=== PATIENT | male | born 1975 | race Two or more races ===

== ENCOUNTER 2020-07-27 12:59 | Outpatient (REF) | payer OTHER, SELFPAY | END 2020-07-27 13:00 | disposition home or self-care (01) | LOC: HO.LAB 12:59 | PROVIDERS: PCP Hospitalist; Visit Provider Internal Medicine | DX: Z20.822 Contact with and (suspected) exposure to COVID-19 (principal) | CPT/HCPCS: 36415; C9803; U0003 ==

== ENCOUNTER 2021-05-06 13:12 | Outpatient (REF) | payer OTHER, SELFPAY | END 2021-05-06 13:13 | disposition home or self-care (01) | LOC: HO.LAB 13:12 | PROVIDERS: PCP Hospitalist; Visit Provider Internal Medicine | DX: Z20.822 Contact with and (suspected) exposure to COVID-19 (principal) | CPT/HCPCS: C9803; U0003; U0005 ==

== ENCOUNTER 2024-03-08 09:39 | Outpatient (AMB) | payer OTHER, SELFPAY ==
[2024-03-08 10:50] VITALS: BP 122/62; PULSE 66; O2SAT 100; BMI 34.2
--- NOTE | 2024-03-08 10:50 | MHC.OFFWIV ---
Intake Vital Signs 03/08/24 10:50 Height 5 ft 6 in Weight 212 lb BMI 34.2 BP 122/62 Blood Pressure Location Lt brachial Position Sitting Pulse 66 Pulse Source Pulse Oximeter Pulse Oximetry (%) 100 Oxygen Delivery Method Room Air Intake Visit Reasons: EP poison sabas Intake Note: Patient is here with poison sabas rash for about a month over various parts of his body, arms groin area, and legs. Patient Tobacco Use Status: Current everyday Tobacco user Allergies No Known Allergies [No Known Allergies*] Allergy (Verified 03/08/24 10:55) Do you need a note to return to daycare/school/sports/work: No HPI EP poison sabas HPI Details Itchy, Blistering, weeping Rash with some crusting at area where sleeve/glove cuffs would be and also at area where top of socks to bottom of shorts would be on bilateral arms and legs. He notes this has been ongoing for about a month. Started and recurred with yard work. Has tried calamine lotion with minimal improvement. No fevers or chills. No change in sensation of skin except itching PFSH Social History Patient Tobacco Use Status: Current everyday Tobacco user e-Cigarette/Vaping Use: Never Used Second Hand Smoke Exposure: No Current occupational exposures/hazards: No Cognitive needs: No Hearing needs: No Vision needs: No Review of Systems Const Details: See HPI Physical Exam Vital Signs: Last Vital Signs Pulse 66 03/08/24 10:50 BP 122/62 03/08/24 10:50 Pulse Ox 100 03/08/24 10:50 Oxygen Delivery Method Room Air 03/08/24 10:50 BMI result Body Mass Index 34.2 Const General: no acute distress and well developed Nutritional Appearance: well nourished Orientation/consciousness: patient oriented x3 HEENT Head: Yes normocephalic and Yes atraumatic Eyes General: appearance normal, both eyes and all related structures Pupils: Equal, round and reactive pupils present EOM: EOMs intact bilaterally Resp Effort & Inspection: normal respiratory effort Skin Other: Rash as described in HPI on bilateral arms and legs Neuro General: patient oriented x3 and gait normal Cranial nerves: Yes Equal, round and reactive pupils present Psych Affect: normal affect Assessment & Plan Assessment & Plan (1) Contact dermatitis: Code(s): L25.9 - Unspecified contact dermatitis, unspecified cause Plan: Likely moderately severe poison sabas on arms and legs Will give him a short course of prednisone and also a betamethasone ointment And he can use Benadryl or daytime antihistamine for itch Clean all tools and protective garments when doing yd work Call or return to office if worsening or not improving. Medications: New prednisone 40 mg (2 x 20 mg) PO DAILY 5 days 10 tabs 0RF betamethasone valerate 0.1% 1 appl topical BID 14 days PRN 45 grams 1RF skin irritation Coding Level of Care Code Est Pt Level 3 (83281) Diagnoses Contact dermatitis L25.9
== END 2024-03-08 12:18 | disposition home or self-care (01) ==
PROVIDERS: PCP Hospitalist; Visit Provider Family Medicine
DX: L25.9 Unspecified contact dermatitis, unspecified cause (principal)
CPT/HCPCS: 99213

== ENCOUNTER 2024-04-10 12:25 | Outpatient (AMB) | payer OTHER, SELFPAY ==
[2024-04-10 12:49] VITALS: BP 130/80; PULSE 101; O2SAT 98; BMI 34.7
--- NOTE | 2024-04-10 12:49 | MHC.OFFWIV ---
Intake Vital Signs 04/10/24 12:49 Height 5 ft 6 in Weight 215 lb BMI 34.7 BP 130/80 Blood Pressure Location Lt brachial Position Sitting Pulse 101 H Pulse Source Pulse Oximeter Pulse Oximetry (%) 98 Oxygen Delivery Method Room Air Intake Visit Reasons: EP ? cyst on his right arm, near arm pit Intake Note: Patient here for cyst under right arm that has been present for about 1 week. Patient Tobacco Use Status: Current everyday Tobacco user Allergies No Known Allergies [No Known Allergies*] Allergy (Verified 04/10/24 12:55) Do you need a note to return to daycare/school/sports/work: No HPI HPI Comments History of Present Illness Details Patient is a 48-year-old male complaining of tenderness under his right armpit and a bump. He states it has been there for about a week but it seemed to get worse yesterday and today it is definitely more tender. He denies any drainage or fevers. He tells me he did have a similar cyst on his left knee many years ago and it was MRSA. [facility] Social History Patient Tobacco Use Status: Current everyday Tobacco user e-Cigarette/Vaping Use: Never Used Second Hand Smoke Exposure: No Current occupational exposures/hazards: No Cognitive needs: No Hearing needs: No Vision needs: No Review of Systems Const All systems reviewed & are unremarkable except as noted in HPI and below Physical Exam Vital Signs: Last Vital Signs Pulse 101 H 04/10/24 12:49 BP 130/80 04/10/24 12:49 Pulse Ox 98 04/10/24 12:49 Oxygen Delivery Method Room Air 04/10/24 12:49 BMI result Body Mass Index 34.7 Const General: cooperative, healthy appearing, comfortable and no acute distress Orientation/consciousness: patient oriented x3 Limitations: no limitations HEENT Head: Yes normal to inspection Eyes General: appearance normal, both eyes and all related structures Resp Effort & Inspection: normal respiratory effort and able to speak in complete sentences Skin Other: Right axilla has area of erythema and a oval, 2 cm long X 1 cm wide area of induration below the surface. No fluctuance, no ecchymosis, no warmth Neuro General: patient oriented x3 Assessment & Plan Assessment & Plan (1) Abscess: Code(s): L02.91 - Cutaneous abscess, unspecified Plan: As the abscesses not drainable, we will cover with antibiotics in his he has had a previous MRSA infection in the skin, we will send doxycycline as well Keflex. Plan see above Medications: New doxycycline hyclate 100 mg PO BID 10 tabs 0RF cephalexin 500 mg PO Q6H 14 caps 0RF Coding Level of Care Code Est Pt Level 3 (74166) Diagnoses Abscess L02.91
== END 2024-04-10 13:28 | disposition home or self-care (01) ==
PROVIDERS: PCP Hospitalist; Visit Provider Physician Assistant
DX: L02.91 Cutaneous abscess, unspecified (principal)

== ENCOUNTER → 2024-04-10 12:25 | Outpatient (BNVA) | payer OTHER, SELFPAY | PROVIDERS: PCP Hospitalist ==

== ENCOUNTER 2024-05-23 10:09 | Outpatient (AMB) | payer OTHER, SELFPAY ==
--- NOTE | 2024-05-23 10:12 | A.OFFPC_ITS ---
Vital Signs 3 05/23/24 10:24 Height 5 ft 6 in Weight 208 lb BMI 33.6 BP 130/78 Blood Pressure Location Lt brachial Position Sitting Pulse 82 Pulse Source Pulse Oximeter Pulse Oximetry (%) 99 Oxygen Delivery Method Room Air Intake Visit Reasons: Rash Eval - For Derm. Referral Intake Note: Patient is here to follow up on Rash all over body and referral to Dermatology. Pt decline flu shot today. Firer Low Pressure Required: No Intelligence Director: Not Required per policy Accompanied by: Self / Same As Patient Allergies No Known Allergies [No Known Allergies*] Allergy (Verified 05/23/24 10:36) Medication List - Last [facility]23/24 [facility] No Known Home Meds Tobacco use date assessed: 05/23/24 Dental Screening Dental Screen Date: 05/23/24 Did you have a dental visit in the last 12 months?: No Did you have a dental problem in the last 6 months where you did not have access to dental care?: No Was dental information given to patient?: No HPI HPI Comments 2 History of Present Illness0 Details 48 y/o M here today for 2 complaints First is that of wt loss, has changed his diet. He weighs himself daily. He wonders how much weight he should lose without being concerned. He was lost her primary care follow up after his primary care left. He has only been seen at the walk-in center's or emergency room for episodic care. The 2nd is that of a recurrent rash which 1st developed about 2 months ago. Reports that he had poison sabas exposure and was treated with prednisone and an ointment with positive relief. However 1 week later while working with dry while he developed the same rash. The rash is on his right forearm, right side of his neck, right ear, trunk anterior and posterior and bilat legs. The rash is intermittently itchy. It was not painful. No one else has this rash. He has been treating at home with topical cortisone, the ointment that he was given at 1 of the urgent care visits and he has been pulsing himself with leftover prednisone that he has at home. Does admit that the prednisone does help with the itch however does not resolve the rash. Would like a referral to dermatology for this. Exam: This rash is present in plaques on his anterior and posterior trunk, right arm, bilat legs, right side of neck, no drainage or erythema to suggest infection Plan Refer to dermatology. Start topical triamcinolone twice per day to the affected areas. Start Zyrtec daily. He requested routine labs to be done and would like to establish care with Dr Vallejo for primary care. I have ordered these routine labs for him and I asked the front end mechanic to arrange a new patient appointment with the requested provider. In regards to the weight loss, this is something he can address with his primary care provider. This note is constructed using voice recognition software. While every effort has been made to ensure accuracy in manager of corporate communications, still errors may have been included Sometimes, these errors may affect the content or meaning of the given sentence . Total time spent caring for the patient today was 30 minutes. This includes time spent before the visit reviewing the chart, time spent during the visit, and time spent after the visit on documentation [facility] Surgical History (Updated 05/23/24 @ 10:27 by ED Wilkes) No pertinent past surgical history Social History (Updated 05/23/24 @ 10:28 by ED Wilkes) Housing: House Alcohol intake: current Alcohol intake frequency: a few times a week Patient Tobacco Use Status: Current everyday Tobacco user Tobacco use type: Cigarette Cigarette Packs Per Day: 0.5 Cigarettes Per Day: 5 e-Cigarette/Vaping Use: Never Used Second Hand Smoke Exposure: Yes service: No Current occupational status: employed Current occupation: [employer] Current occupational exposures/hazards: No Cognitive needs: No Hearing needs: No Vision needs: Yes (Glasses) Questionnaire PHQ-9 Over the last 2 weeks, how often have you been bothered by any of the following problems? 1. Little interest or pleasure in doing things: not at all 2. Feeling down, depressed, or hopeless: not at all 3. Trouble falling or staying asleep, or sleeping too much: not at all 4. Feeling tired or having little energy: not at all 5. Poor appetite or overeating: several days 6. Feeling bad about yourself - or that you are a failure or have let yourself or your family down: not at all 7. Trouble concentrating on things, such as reading the newspaper or watching television: not at all 8. Moving or speaking so slowly that other people could have noticed. Or the opposite - being so fidgety or restless that you have been moving around a lot more than usual: not at all 9. Thoughts that you would be better off or of hurting yourself in some way: not at all Total score: 1 Depression Screening Interpretation: Positive Depression Screening Done: Yes 77636 - PHQ-9 Billing: Yes Source: Developed by Drs. Armando Zamarripa, Chacha Alvarez, Grabiel Buckner and colleagues, with an educational carlos from [employer]. Thrive Questionnaire Date Thrive assessed: 05/23/24 I am a: Patient What is your living situation today?: I have a steady place to live Within the past 12 months, did the food you bought not last and you didn't have the money to get more?: I choose not to answer this question Within the past 12 months, did you worry whether your food would run out before you got money to buy more?: I choose not to answer this question Do you have trouble paying for medicines?: No Do you have trouble getting transportation to medical appointments?: No Do you have trouble paying your heating and electricity bill?: No Do you have trouble taking care of your child, family member or friend?: No Do you have trouble with day-to-day activities such as bathing, preparing meals, shopping, managing finances, etc.?: No Are you currently unemployed and looking for a job?: No Are you interested in more education?: No Please select the resources that you would like help with: None Currently or been in a relationship where the following occur: I choose not to answer THRIVE Score: 0 AUDIT C Alcohol Use Questionnaire (AUDIT-C) 1. How often do you have a drink containing alcohol?: 2-4 times a month 2. How many drinks containing alcohol do you have on a typical day when you are drinking?: 3 or 4 3. How often do you have six or more drinks on one occasion?: Less than monthly Total Score: 4 Score Reviewed/Action Taken: Yes NAREN-7 AMB Questionnaire NAREN-7 Date NAREN - 7 assessed: 05/23/24 Feeling nervous, anxious, or on edge: 0 = Not at all Not being able to stop or control worryin = Not at all Worrying too much about different things: 0 = Not at all Trouble relaxin = Not at all Being so restless that it is hard to sit still: 0 = Not at all Becoming easily annoyed or irritable: 0 = Not at all Feeling afraid as if something awful might happen: 0 = Not at all Total NAREN-7 score (0-4 normal; 5-9 mild; 10-14 moderate; 15-21 severe): 0 Source: Developed by Drs. Armando Zamarripa, Chacha Alvarez, Grabiel Buckner and colleagues, with an educational carlos from [employer]. NAREN-7 Assessment Billing NAREN-7 Assessment Tool: NAREN-7 Assessment 61185 Physical exam (Primary Care) Vital Signs: Last Vital Signs Pulse 82 05/23/24 10:24 BP 130/78 05/23/24 10:24 Pulse Ox 99 05/23/24 10:24 Oxygen Delivery Method Room Air 05/23/24 10:24 BMI result Body Mass Index 33.6 Tobacco/Smoking Status: Tobacco use Status Tobacco use date assessed 05/23/24 05/23/24 10:29 Patient Tobacco Use Status Current everyday Tobacco 05/23/24 10:28 Tobacco use type Cigarette 05/23/24 10:29 e-Cigarette/Vaping Use Never Used 05/23/24 10:28 PHQ-9: PHQ-9 Score PHQ-9: Total score 1 05/23/24 10:13 Depression Screening Interpretation: Positive Thrive Assessment: Date of Thrive Assessment Date Thrive assessed 05/23/24 05/23/24 10:13 Currently or been in a relationship where the following occur: I choose not to answer Coding Level of Care Code Est Pt Level 4 (79658) Complex EM visit Add On G2211 Diagnoses Rash of entire body R21 Additional Codes PHQ-9 - 58260 - PHQ-9 Billing: Yes ([id number]) NAREN-7 Assessment Billing - NAREN-7 Assessment Tool: NAREN-7 Assessment 30299 ([id number]) Assessment & Plan Assessment & Plan (1) Rash of entire body: Code(s): R21 - Rash and other nonspecific skin eruption Category: Medical Plan: . Plan . Orders: Orders 2 Comprehensive Met. Panel Today Z00.00 - Encounter for general adult medical examination without abnormal findings, Z11.3 - Encounter for screening for infections with a predominantly sexual mode of transmission Hemoglobin A1c Today Z00.00 - Encounter for general adult medical examination without abnormal findings, Z11.3 - Encounter for screening for infections with a predominantly sexual mode of transmission Lipid Panel Today Z00.00 - Encounter for general adult medical examination without abnormal findings, Z11.3 - Encounter for screening for infections with a predominantly sexual mode of transmission Microalbumin, Random (w Creat) Today Z00.00 - Encounter for general adult medical examination without abnormal findings, Z11.3 - Encounter for screening for infections with a predominantly sexual mode of transmission TSH reflex Free T4 Today Z00.00 - Encounter for general adult medical examination without abnormal findings, Z11.3 - Encounter for screening for infections with a predominantly sexual mode of transmission Vitamin B12 and Folate Today Z00.00 - Encounter for general adult medical examination without abnormal findings, Z11.3 - Encounter for screening for infections with a predominantly sexual mode of transmission Syphilis Screen Today Z00.00 - Encounter for general adult medical examination without abnormal findings, Z11.3 - Encounter for screening for infections with a predominantly sexual mode of transmission Herpes Simplex Virus Ab IgG Today Z00.00 - Encounter for general adult medical examination without abnormal findings, Z11.3 - Encounter for screening for infections with a predominantly sexual mode of transmission PSA, Ultra Sensitive Today Z00.00 - Encounter for general adult medical examination without abnormal findings, Z11.3 - Encounter for screening for infections with a predominantly sexual mode of transmission Referrals 2 Dermatology Referral R21 - Rash and other nonspecific skin eruption Medications: New 2 cetirizine (Zyrtec) 10 mg PO DAILY 90 tabs 0RF triamcinolone acetonide 0.1% arms legs back abd 1 appl topical BID 453.6 grams 2RF
[2024-05-23 10:24] VITALS: BP 130/78; PULSE 82; O2SAT 99; BMI 33.6
== END 2024-05-23 10:47 | disposition home or self-care (01) ==
PROVIDERS: PCP Nurse Practitioner Family; Visit Provider Nurse Practitioner Family
DX: R21 Rash and other nonspecific skin eruption (principal)

== ENCOUNTER 2024-05-23 10:58 | Outpatient (REF) | payer OTHER, SELFPAY ==
[2024-05-23 14:36] LABS: Estimated Average Glucose 105 mg/dL; Hemoglobin A1C 133.9263 umol/L; Hemoglobin A1c % 5.3 % (<6.0); Total Hemoglobin (HGBA1C) 3834.8352 umol/L
[2024-05-23 14:41] LABS: Alanine Aminotransferase 17 U/L (0-40); Albumin Level 4.6 g/dL (3.5-5.0); Alkaline Phosphatase 50 U/L (39-117); Anion Gap 11 (12-20); Aspartate Amino Transferase 25 U/L (5-37); Bilirubin Total 1.3 mg/dL (0.0-1.0); Blood Urea Nitrogen 11 mg/dL (9-16); Calcium 9.7 mg/dL (8.4-10.2); Carbon Dioxide 24 mmol/L (22-29); Chloride 106 mmol/L (96-108); Cholesterol 200 mg/dL (<200); Estimated Glomerular Filt Rate > 60; Glucose Random 102 mg/dL (60-115); HDL Cholesterol 54 mg/dL (>40); LDL Cholesterol Calculated 127 mg/dL (<100); Potassium 3.9 mmol/L (3.3-5.1); Sodium 137 mmol/L (135-145); Total Protein 7.5 g/dL (6.5-8.0); Triglycerides 95 mg/dL (<150)
[2024-05-23 14:48] LABS: TSH reflex Free T4 0.62 uIU/mL (0.32-4.0)
[2024-05-23 14:57] LABS: Vitamin B12 231 pg/mL (200-900)
[2024-05-23 18:24] LABS: Creatinine Urine 63.16 mg/dL; Microalbumin Urine < 5.0 mg/L
[2024-05-25 08:52] LABS: Syphilis Screen Nonreactive (Nonreactive)
[2024-05-26 12:38] LABS: Herpes Simplex Type 2 IgG <0.90 index
[2024-05-29 07:53] LABS: PSA, Ultra Sensitive 0.97 ng/mL
== END 2024-05-23 10:59 | disposition home or self-care (01) ==
LOC: HO.WFDLDS 10:58
PROVIDERS: Visit Provider Nurse Practitioner Family
DX: R21 Rash and other nonspecific skin eruption (principal); Z00.00 Encounter for general adult medical examination without abnormal findings; Z11.3 Encounter for screening for infections with a predominantly sexual mode of transmission; Z12.5 Encounter for screening for malignant neoplasm of prostate
CPT/HCPCS: 36415; 80053; 80061; 82570; 82607; 82746; 83036; 84153; 84443; 86695; 86696; 86780; 96127

== ENCOUNTER 2024-05-30 13:03 | Outpatient (AMB) | payer OTHER, SELFPAY ==
--- NOTE | 2024-05-30 13:18 | MHC.PC.OV ---
Vital Signs 05/30/24 13:24 Height 5 ft 6 in Weight 210 lb BMI 33.9 BP 130/72 Blood Pressure Location Rt brachial Position Sitting Respiration 16 Pulse 78 Pulse Source Pulse Oximeter Temp 98.6 F Temp Source Temporal Artery Scan Pulse Oximetry (%) 100 Oxygen Delivery Method Room Air Intake Visit Reasons: 1 week est care with Yoni, review labs Intake Note: patient here to establish care and review labs Diamond Sawer Required: No Allergies No Known Allergies [No Known Allergies*] Allergy (Verified 05/30/24 13:53) Medication List - Last Reconciled 05/30/24 by Jakob Vallejo CNP cetirizine (Zyrtec) 10 mg PO DAILY triamcinolone acetonide 0.1% 1 appl topical BID Tobacco use date assessed: 05/30/24 Dental Screening Dental Screen Date: 05/30/24 Did you have a dental visit in the last 12 months?: No Did you have a dental problem in the last 6 months where you did not have access to dental care?: No Was dental information given to patient?: Patient has dentist HPI HPI Comments History of Present Illness Details The patient is a 48-year-old male presenting to establish care and for the follow-up of eczema management. The patient has a history of chronic low back pain, which was last evaluated on May 05, 2022, by a previous PCP, Katherin Lees. The patient reports that the back pain has resolved with daily stretching exercises, which initially worsened the pain but later provided relief. No surgical history was noted for this condition. Currently, the patient is managing eczema with triamcinolone cream applied twice daily. This dermatologic condition, identified as papular eczema by a lead software qa engineer, affects the patient's forearms, stomach, and buttocks. The patient reports a slight improvement with treatment. The patient denies a significant family medical history and has no known allergies. Bilirubin levels were slightly elevated at 1.3, which could indicate mild Gilbert syndrome but shows no symptoms of jaundice. Hypercholesterolemia was detected with total cholesterol at 200 mg/dL and LDL at 127 mg/dL. PMH - low back pain Surgical history - None FMH - None Social History - Family Status: - Substance Use: Smokes 4-6 cigarettes per day since 2007, occasional alcohol use on weekends (approx. six beers over two days), no recreational drug use. - Exercise: Rides a bike twice weekly, incorporates stretching exercises for back health - Nutritional Intake: Has significantly reduced fast food consumption, engages in intermittent fasting (12-15 hours without intake) - Weight Management: Has lost weight, current weight 210 pounds, previous nearly 300 pounds Health Maintenance - Last dental visit over one year ago; issue with a cavity in the left upper wisdom tooth - Recommended eye examination due to glasses wear for farsightedness, last exam 3-4 years ago - Last tetanus vaccination was in 01/06/2013; declined vaccination. - Declined flu vaccination - Current weight 210 pounds, BMI 33.9 - Recommended lifestyle emphasis on diet and exercise - Recent lab work indicated slightly elevated bilirubin and cholesterol levels PFSH Surgical History (Updated 05/23/24 @ 10:27 by ED Wilkes) No pertinent past surgical history Social History (Updated 05/23/24 @ 10:28 by ED Wilkes) Housing: House Alcohol intake: current Alcohol intake frequency: a few times a week Patient Tobacco Use Status: Current everyday Tobacco user Tobacco use type: Cigarette Cigarette Packs Per Day: 0.5 Cigarettes Per Day: 5 e-Cigarette/Vaping Use: Never Used Second Hand Smoke Exposure: Yes service: No Current occupational status: employed 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 1. Little interest or pleasure in doing things: not at all 2. Feeling down, depressed, or hopeless: not at all 3. Trouble falling or staying asleep, or sleeping too much: not at all 4. Feeling tired or having little energy: not at all 5. Poor appetite or overeating: not at all 6. Feeling bad about yourself - or that you are a failure or have let yourself or your family down: not at all 7. Trouble concentrating on things, such as reading the newspaper or watching television: not at all 8. Moving or speaking so slowly that other people could have noticed. Or the opposite - being so fidgety or restless that you have been moving around a lot more than usual: not at all 9. Thoughts that you would be better off or of hurting yourself in some way: not at all Total score: 0 Depression Screening Interpretation: Negative Depression Screening Done: Yes 35858 - PHQ-9 Billing: Yes Source: Developed by Drs. Armando Zamarripa, Chacha Alvarez, Grabiel Buckner and colleagues, with an educational carlos from [employer]. Thrive Questionnaire Date Thrive assessed: 05/30/24 I am a: Patient What is your living situation today?: I have a steady place to live Within the past 12 months, did the food you bought not last and you didn't have the money to get more?: I choose not to answer this question Within the past 12 months, did you worry whether your food would run out before you got money to buy more?: I choose not to answer this question Do you have trouble paying for medicines?: No Do you have trouble getting transportation to medical appointments?: No Do you have trouble paying your heating and electricity bill?: No Do you have trouble taking care of your child, family member or friend?: No Do you have trouble with day-to-day activities such as bathing, preparing meals, shopping, managing finances, etc.?: No Are you currently unemployed and looking for a job?: No Are you interested in more education?: No Please select the resources that you would like help with: None Currently or been in a relationship where the following occur: I choose not to answer THRIVE Score: 0 AUDIT C Alcohol Use Questionnaire (AUDIT-C) 1. How often do you have a drink containing alcohol?: Monthly or less 2. How many drinks containing alcohol do you have on a typical day when you are drinking?: 1 or 2 3. How often do you have six or more drinks on one occasion?: Less than monthly Total Score: 2 Score Reviewed/Action Taken: Yes NAREN-7 AMB Questionnaire NAREN-7 Date NAREN - 7 assessed: 05/30/24 Feeling nervous, anxious, or on edge: 0 = Not at all Not being able to stop or control worryin = Not at all Worrying too much about different things: 0 = Not at all Trouble relaxin = Not at all Being so restless that it is hard to sit still: 0 = Not at all Becoming easily annoyed or irritable: 0 = Not at all Feeling afraid as if something awful might happen: 0 = Not at all Total NAREN-7 score (0-4 normal; 5-9 mild; 10-14 moderate; 15-21 severe): 0 Source: Developed by Drs. Armando Zamarripa, Chacha Alvarez, Grabiel Buckner and colleagues, with an educational carlos from [employer]. NAREN-7 Assessment Billing NAREN-7 Assessment Tool: NAREN-7 Assessment 50987 Review of Systems Const Details: Denies chills, Denies fatigue, Denies fever(s), Denies headache(s) and Denies weakness HEENT Difficulty seeing far, requires glasses, Denies change in vision, Denies dizziness, Denies headache(s), Denies hearing loss, Denies nasal congestion, Denies sinus pain, Denies sinus pressure and Denies sore throat Card Denies chest pain, Denies lightheadedness, Denies dyspnea and Denies other (palpitations) Resp Denies cough, Denies dyspnea and Denies wheezing GI Denies abdominal pain, Denies melena, Denies hematochezia, Denies change in bowel habits, Denies dyspepsia and Denies nausea Denies hematuria and Denies dysuria Musc Denies abnormal gait, Denies myalgias, Denies arthralgias, Denies numbness and Denies tingling Skin/Breast Reports eczema on forearms, stomach, and buttocks, Denies unusual bruising and Denies wounds Neuro Denies abnormal gait, Denies dizziness, Denies headache(s), Denies memory loss, Denies numbness, Denies Sensory deficit (Neuro), Denies tingling and Denies weakness Psych Denies anxiety, Denies depression and Denies memory loss Endo Denies cold intolerance, Denies fatigue, Denies heat intolerance, Denies polydipsia and Denies polyuria Jose Raul/Lymph Denies easy bleeding and Denies easy bruising Aller/Immun Denies wheezing Physical exam (Primary Care) Vital Signs: Last Vital Signs Temp 98.6 F 05/30/24 13:24 Pulse 78 05/30/24 13:24 Resp 16 05/30/24 13:24 BP 130/72 05/30/24 13:24 Pulse Ox 100 05/30/24 13:24 Oxygen Delivery Method Room Air 05/30/24 13:24 BMI result Body Mass Index 33.9 Tobacco/Smoking Status: Tobacco use Status Tobacco use date assessed 05/30/24 05/30/24 13:24 Patient Tobacco Use Status Current everyday Tobacco 05/30/24 13:19 Tobacco use type Cigarette 05/30/24 13:19 e-Cigarette/Vaping Use Never Used 05/30/24 13:19 PHQ-9: PHQ-9 Score PHQ-9: Total score 0 05/30/24 13:34 Depression Screening Interpretation: Negative Thrive Assessment: Date of Thrive Assessment Date Thrive assessed 05/30/24 05/30/24 13:19 Currently or been in a relationship where the following occur: I choose not to answer Const Other: General: no acute distress, well developed, alert and awake Nutritional Appearance: well nourished Orientation/consciousness: patient oriented x3 HENMT Head: Yes normocephalic and Yes atraumatic Ears: hearing grossly normal bilaterally and TM's normal bilaterally General nose exam: Normal external nose present and Normal nares present Mouth: Normal oral and palatal mucosa present and moist mucous membranes Teeth and gingiva: dentition normal except for cavity/decay in the left upper wisdom tooth, no overt infection Throat: Yes oropharynx normal Eyes Pupils: Equal, round and reactive pupils present and Pupil accommodation reflex normal EOM: EOMs intact bilaterally Neck Neck: Yes normal visual inspection, Yes no lymphadenopathy and Yes trachea midline Thyroid: Thyroid normal Carotids: no bruits Lymphatic: no lymphadenopathy noted Chest Chest palpation & inspection: normal inspection of the chest Resp Effort & Inspection: normal respiratory effort Auscultation: clear to auscultation bilaterally Cardio Rate: regular rate Rhythm: regular rhythm Heart sounds: S1 normal heart sound present, S2 normal heart sound present, no gallops, no murmurs and no rubs Bruits: no abdominal aortic bruits and no carotid bruits GI Palpation (GI): No Abdominal aortic bruit present, Soft to palpation, nontender, No hepatosplenomegaly present and No Rebound tenderness present Auscultation: normal bowel sounds General: Yes no CVA tenderness Back/Spine/Pelvis Back: no CVA tenderness Cervical Spine: cervical ROM normal and No Cervical spine tenderness Thoracic/Lumbar Spine: thoraco-lumbar ROM normal, No pain with thoraco-lumbar ROM, No thoracic spinal tenderness and No lumbar spinal tenderness Skin General: warm and dry. Normal skin color. Normal skin turgor Lesions: no lesions Rashes: Slightly raised, red patches on forearms, stomach, and buttocks Trauma: no lacerations or abrasions Wounds: no wounds Nails: normal Neuro General: patient oriented x3, gait normal and CN's II-XI intact bilaterally Cranial nerves: Yes Equal, round and reactive pupils present Cognition (Neuro): normal cognition Gait exam (Neuro): Normal gait present Motor exam (neuro): 5/5 motor strength present throughout Sensory Exam: No Sensory deficit (Neuro) Deep tendon reflexes (DTR's): Right patellar reflex intensity grade: 2+ and Left patellar reflex intensity grade: 2+ Extrem General: Yes normal to inspection, No edema and No calf tenderness Psych Appearance: grossly normal Affect: normal affect Attitude: cooperative Thought process: Normal thought process present Coding Level of Care Code New Pt Level 4 (79202) New Pt Prev Care 40-64y(53305) Diagnoses Normal physical examination, routine Z00.00 Obesity (BMI 30-39.9) E66.9 Eczema L30.9 Hypercholesterolemia E78.00 Tooth decay K02.9 Tobacco use disorder F17.200 Farsightedness H52.00 Laboratory tests ordered as part of a complete physical exam (CPE) Z00.00 Additional Codes NAREN-7 Assessment Billing - NAREN-7 Assessment Tool: NAREN-7 Assessment 64935 ([id number]) PHQ-9 - 20724 - PHQ-9 Billing: Yes ([id number]) Assessment & Plan Assessment & Plan (1) Normal physical examination, routine: Code(s): Z00.00 - Encounter for general adult medical examination without abnormal findings Category: Medical Plan: No significant functional limitation noted. Follow up for a telehealth visit in 2-3 weeks for labs review. (2) Obesity (BMI 30-39.9): Code(s): E66.9 - Obesity, unspecified Category: Medical (3) Eczema: Code(s): L30.9 - Dermatitis, unspecified Category: Medical Plan: Continue application of triamcinolone cream twice daily. Moisturize skin as advised by lead software qa engineer. Follow-up recommended if condition worsens before next scheduled visit. (4) Hypercholesterolemia: Code(s): E78.00 - Pure hypercholesterolemia, unspecified Category: Medical Plan: Emphasize lifestyle modifications including diet and exercise; re-evaluate with lab work prior to next visit. (5) Tooth decay: Code(s): K02.9 - Dental caries, unspecified Category: Medical Plan: Advise scheduling a dental appointment for evaluation and management of cavity in the left upper wisdom tooth. (6) Tobacco use disorder: Code(s): F17.200 - Nicotine dependence, unspecified, uncomplicated Category: Medical Plan: Advise reducing cigarette consumption with guidance for cessation if desired. (7) Farsightedness: Code(s): H52.00 - Hypermetropia, unspecified eye Category: Medical Plan: Schedule for eye exam to update prescription for farsightedness. (8) Laboratory tests ordered as part of a complete physical exam (CPE): Code(s): Z00.00 - Encounter for general adult medical examination without abnormal findings Category: Medical Plan: Fasting labs ordered as part of a complete physical exam. Advised to fast for at least 10 hours before getting labs drawn. May drink water Verbalized understanding and agreed with treatment plan. Plan Discussed with the patient the management of eczema, including continuation of the triamcinolone cream and moisturizing regimen as per lead software qa engineer's instructions. I advised the patient to continue his healthy lifestyle changes regarding diet and exercise to address elevated cholesterol levels. We discussed the importance of dental care in managing tooth decay and encouraged scheduling an eye examination for updated corrective lenses. The patient was informed about the potential health risks associated with prolonged cigarette use and advised on cessation resources. Follow-up lab work was recommended to monitor bilirubin and cholesterol levels. Orders: Orders Complete Blood Count Auto Diff Today Z00.00 - Encounter for general adult medical examination without abnormal findings UA CC w/rflx Micro + Cult Today Z00.00 - Encounter for general adult medical examination without abnormal findings Patient Instructions: - Continue using triamcinolone cream twice daily for eczema. - Schedule a dental appointment for the wisdom tooth cavity. - Consider an eye exam for updated glasses prescription. - Maintain current dietary and exercise routines to manage cholesterol and weight. - Prepare for follow-up lab work before the next scheduled visit. - Try to reduce cigarette consumption; cessation support available if needed. - Contact the clinic if eczema symptoms worsen before the next appointment. Patient was informed and verbally consented to the use of an ambient scribe for clinic note documentation during this visit.
[2024-05-30 13:24] VITALS: BP 130/72; PULSE 78; RESP 16; TEMP 37; O2SAT 100; BMI 33.9
== END 2024-05-30 14:18 | disposition home or self-care (01) ==
PROVIDERS: PCP Family Medicine; Visit Provider Nurse Practitioner Family
DX: Z00.00 Encounter for general adult medical examination without abnormal findings (principal); E78.00 Pure hypercholesterolemia, unspecified; E66.9 Obesity, unspecified; Z68.33 Body mass index [BMI] 33.0-33.9, adult; L30.9 Dermatitis, unspecified; F17.200 Nicotine dependence, unspecified, uncomplicated; H52.00 Hypermetropia, unspecified eye; K02.9 Dental caries, unspecified

== ENCOUNTER → 2024-05-30 13:03 | Outpatient (BNVA) | payer OTHER, SELFPAY | PROVIDERS: PCP Family Medicine; Visit Provider Nurse Practitioner Family | DX: L30.9 Dermatitis, unspecified (principal); E66.9 Obesity, unspecified; Z68.33 Body mass index [BMI] 33.0-33.9, adult; E78.00 Pure hypercholesterolemia, unspecified; K02.9 Dental caries, unspecified; H52.00 Hypermetropia, unspecified eye; F17.210 Nicotine dependence, cigarettes, uncomplicated | CPT/HCPCS: 96127 ==

== ENCOUNTER 2024-06-04 08:04 | Outpatient (AMB) | payer OTHER, SELFPAY ==
[2024-06-04 08:12] VITALS: BP 140/98; PULSE 91; TEMP 36.8; O2SAT 100
--- NOTE | 2024-06-04 08:12 | AM.OFFWIN_ITS ---
Intake Vital Signs 06/04/24 08:12 Weight 212 lb BP 140/98 H Blood Pressure Location Lt brachial Position Sitting Pulse 91 Pulse Source Pulse Oximeter Temp 98.2 F Temp Source Oral Pulse Oximetry (%) 100 Oxygen Delivery Method Room Air Intake Visit Reasons: EP Ear ache Intake Note: Patient here for right ear pain feels like ear canal is closing and had some discharge this morning. Patient Tobacco Use Status: Current everyday Tobacco user Allergies No Known Allergies [No Known Allergies*] Allergy (Verified 06/04/24 08:26) Do you need a note to return to daycare/school/sports/work: No HPI EP Ear ache HPI Details This note is constructed using voice recognition software. While every effort has been made to ensure accuracy, lamp decorator errors may have been included. The patient is a 48 year old male who presents to the clinic today with right sided ear pain worsening since Sunday. He notes he has a history of eczema in his ears, and he did scratched his ear the other day, within a couple of days of that he started developing redness, warmth, and pain. He noticed some slight discharge this morning. He had some chills last night, but did not check his temperature. He denies cough, shortness of breath, body aches, sinus congestion, or any other URI symptoms. 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 Current occupational exposures/hazards: No Cognitive needs: No Hearing needs: No Vision needs: Yes (Glasses) Review of Systems Const All systems reviewed & are unremarkable except as noted in HPI and below Physical Exam Vital Signs: Last Vital Signs Temp 98.2 F 06/04/24 08:12 Pulse 91 06/04/24 08:12 BP 140/98 H 06/04/24 08:12 Pulse Ox 100 06/04/24 08:12 Oxygen Delivery Method Room Air 11/27/24 08:12 Const General: cooperative, healthy appearing, comfortable and no acute distress Orientation/consciousness: patient oriented x3 HEENT Head: Yes normal to inspection, Yes No palpable skull fracture present and Yes normocephalic Ears: hearing grossly normal bilaterally, TM's normal bilaterally, mastoids normal (no TTP) bilaterally and Abnormal EAC present erythema on the right and edema on the right General nose exam: Normal external nose present Face and sinus: Yes normal facial exam Mouth: Normal oral and palatal mucosa present Teeth and gingiva: dentition normal Throat: Yes posterior oropharynx normal Eyes General: appearance normal, both eyes and all related structures Neck Neck: Yes normal visual inspection, Yes full ROM, Yes no lymphadenopathy, Yes no meningeal signs, Yes trachea midline and Yes supple Resp Effort & Inspection: normal respiratory effort and able to speak in complete sentences Skin General skin exam: no rashes or lesions noted Neuro General: patient oriented x3 and no meningeal signs Assessment & Plan Assessment & Plan (1) Otitis externa: Code(s): H60.90 - Unspecified otitis externa, unspecified ear Qualifiers: Otitis externa type: unspecified type Chronicity: acute Laterality: right Qualified Code(s): H60.501 - Unspecified acute noninfective otitis externa, right ear Plan: Given extent of discomfort and inflammation, oral antibiotics. Advised NSAIDs and warm compress for pain management. Plan See above for full details and plan. Medications: New amoxicillin-pot clavulanate 875-125 mg 1 tab PO BID 7 days 14 tabs 0RF Coding Level of Care Code Est Pt Level 3 (99109) Diagnoses Acute otitis externa of right ear, unspecified type H60.501 Otitis externa type: unspecified type Chronicity: acute Laterality: right
== END 2024-06-04 08:51 | disposition home or self-care (01) ==
PROVIDERS: PCP Family Medicine; Visit Provider Registered Nurse
DX: H60.501 Unspecified acute noninfective otitis externa, right ear (principal)

== ENCOUNTER 2024-08-08 06:16 | Outpatient (REF) | payer OTHER, SELFPAY ==
[2024-08-08 06:33] LABS: MANUAL DIFF FLAG NO
[2024-08-08 07:08] LABS: Basophils Absolute Auto 0.1 X10*3/uL (0.0-0.2); Basophils Percent Auto 0.9 % (0-2); Eosinophils Absolute Auto 0.6 X10*3/uL (0.0-0.4); Eosinophils Percent Auto 5.9 % (0-4); Hematocrit 46.1 % (42.0-52.0); Imm Gran Abs Auto 0.03 X10*3/uL (0.00-0.03); Imm Gran Pct Auto 0.3 % (0.0-0.4); Lymphocytes Percent Auto 18.4 % (20-40); Mean Corpuscular HGB Conc 32.5 g/dl (31.0-36.0); Mean Corpuscular Hemoglobin 29.5 pg (27.0-33.0); Mean Corpuscular Volume 90.7 fL (80.0-98.0); Monocytes Absolute Auto 0.9 X10*3/uL (0.1-1.2); Monocytes Percent Auto 8.3 % (2-11); Neutrophils Absolute Auto 7.1 x10*3/uL (2.0-8.3); Neutrophils Percent Auto 66.2 % (45-73); Platelet Count 293 X10*3/uL (160-400); Red Blood Count 5.08 X10*6/uL (4.60-5.80); Red Cell Distribution Width 12.9 % (11.0-16.0); White Blood Count 10.8 X10*3/uL (4.8-10.8)
[2024-08-08 07:35] LABS: Bilirubin Total 0.9 mg/dL (0.0-1.0); Cholesterol 186 mg/dL (<200); HDL Cholesterol 47 mg/dL (>40); LDL Cholesterol Calculated 116 mg/dL (<100); Triglycerides 116 mg/dL (<150)
[2024-08-08 08:10] LABS: Appearance Urine Clear; Color Urine Yellow; Glucose Urine UA Negative (Negative); Leukocyte Esterase Urine Negative (Negative); Nitrite Urine Negative (Negative); PH 5.5 (5.0-9.0); Urine Blood Negative (Negative); Urine Ketones Negative (Negative); Urine Protein Negative (Neg-Trace)
== END 2024-08-08 06:17 | disposition home or self-care (01) ==
LOC: HO.LAB 06:16
PROVIDERS: PCP Nurse Practitioner Family; Visit Provider Nurse Practitioner Family
DX: Z00.00 Encounter for general adult medical examination without abnormal findings (principal); E78.00 Pure hypercholesterolemia, unspecified
CPT/HCPCS: 36415; 80061; 81003; 82247; 85025

== ENCOUNTER 2024-09-02 15:51 | Outpatient (AMB) | payer OTHER, SELFPAY ==
--- NOTE | 2024-09-02 15:48 | A.OFFPC_ITS ---
Intake Visit Reasons: Telehealth 3 mos hypercholesterolemia Intake Note: patient here for follow up on hypercholesterolemia as a telehealth Integration Architect Required: No Allergies No Known Allergies [No Known Allergies*] Allergy (Verified 09/02/24 15:48) Tobacco use date assessed: 09/02/24 Dental Screening Dental Screen Date: 09/02/24 Did you have a dental visit in the last 12 months?: Yes Did you have a dental problem in the last 6 months where you did not have access to dental care?: No Was dental information given to patient?: Patient has dentist HPI HPI Comments History of Present Illness Details 48-year-old male presents for [facility] for review of recent lab results. No acute symptoms. 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 Current occupational exposures/hazards: No Cognitive needs: No Hearing needs: No Vision needs: Yes (Glasses) Questionnaire Thrive Questionnaire Date Thrive assessed: 05/23/24 I am a: Patient What is your living situation today?: I have a steady place to live Within the past 12 months, did the food you bought not last and you didn't have the money to get more?: I choose not to answer this question Within the past 12 months, did you worry whether your food would run out before you got money to buy more?: I choose not to answer this question Do you have trouble paying for medicines?: No Do you have trouble getting transportation to medical appointments?: No Do you have trouble paying your heating and electricity bill?: No Do you have trouble taking care of your child, family member or friend?: No Do you have trouble with day-to-day activities such as bathing, preparing meals, shopping, managing finances, etc.?: No Are you currently unemployed and looking for a job?: No Are you interested in more education?: No Please select the resources that you would like help with: None Currently or been in a relationship where the following occur: I choose not to answer THRIVE Score: 0 AUDIT C Alcohol Use Questionnaire (AUDIT-C) 2. How many drinks containing alcohol do you have on a typical day when you are drinking?: 3 or 4 3. How often do you have six or more drinks on one occasion?: Weekly Total Score: 4 NAREN-7 AMB Questionnaire NAREN-7 Date NAREN - 7 assessed: 05/30/24 Source: Developed by Drs. Armando Zamarripa, Chacha Alvarez, Grabiel Buckner and colleagues, with an educational carlos from [email or web address]. Review of Systems Const Details: Denies chills, Denies fatigue, Denies fever(s), Denies headache(s) and Denies weakness Cardiac Denies chest pain, Denies claudication, Denies leg edema, Denies lightheadedness, Denies palpitations, Denies dyspnea, Denies dyspnea on exertion, Denies orthopnea and Denies other (Loss of consciousness) Resp Denies cough, Denies excessive phlegm production, Denies dyspnea, Denies dyspnea on exertion, Denies snoring and Denies wheezing Physical exam (Primary Care) Tobacco/Smoking Status: Tobacco use Status Tobacco use date assessed 09/02/24 09/02/24 15:51 Patient Tobacco Use Status Current everyday Tobacco 09/02/24 15:51 Tobacco use type Cigarette 09/02/24 15:51 e-Cigarette/Vaping Use Never Used 09/02/24 15:51 Thrive Assessment: Date of Thrive Assessment Date Thrive assessed 05/23/24 09/02/24 15:51 Currently or been in a relationship where the following occur: I choose not to answer Const Other: Telehealth visit. No physical exam. Telehealth Telehealth Telehealth Platform: Telephone Location of provider rendering services: practice address Location of patient: address on file Patient Identification confirmed using: Name, : Yes Telehealth method: voice only Patient verbally consented to treatment: Yes Patient verbally consented to billing insurance company: Yes Patient informed of any privacy concerns related to visit: Yes Coding Level of Care Code Tele Est Pt Level 3 (51079) Diagnoses Hypercholesterolemia E78.00 Time Spent (min) 10 Assessment & Plan Assessment & Plan (1) Hypercholesterolemia: Code(s): E78.00 - Pure hypercholesterolemia, unspecified Category: Medical Plan: Recent lab results unremarkable except for slightly elevated LDL, 116. Advised to limit foods high in saturated fat and avoid foods high in trans fat. Routine exercise encouraged. Advised to fast for 10-12 hours, may drink water, and perform lipid panel blood work 2-3 days before next visit. Follow-up for telehealth visit in 3 months. Return sooner with symptoms or concerns. Verbalized understanding and agreed with treatment plan. Orders: Orders Lipid Panel 3 Months E78.00 - Pure hypercholesterolemia, unspecified
== END 2024-09-02 17:05 | disposition home or self-care (01) ==
LOC: HO.HMCFM 15:51
PROVIDERS: PCP Nurse Practitioner Family; Visit Provider Nurse Practitioner Family
DX: E78.00 Pure hypercholesterolemia, unspecified (principal)

== ENCOUNTER 2024-10-07 11:59 | Outpatient (AMB) | payer OTHER, SELFPAY ==
--- NOTE | 2024-10-07 12:00 | MHC.OFFVIS ---
Intake Visit Reasons: Shoulder pain Intake Note: patient her c/o shoulder pain. 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
--- NOTE | 2024-10-07 12:04 | A.OFFPC_ITS ---
Vital Signs 10/07/24 12:06 Height 5 ft 6 in Weight 214 lb 4 oz BMI 34.6 BP 124/63 Blood Pressure Location Rt brachial Position Sitting Respiration 16 Pulse 86 Pulse Source Pulse Oximeter Temp 98.3 F Temp Source Oral Pulse Oximetry (%) 100 Oxygen Delivery Method Room Air Intake Visit Reasons: Shoulder pain Intake Note: patient here c/o of left shoulder pain and it radiates to the front and it hurts even when he moved his head this has been happening since Sunday. muscle relaxer and ibuprofen not helping. Special Investigation Unit Investigator Required: No Allergies No Known Allergies [No Known Allergies*] Allergy (Verified 10/07/24 12:07) Medication List - Last Reconciled 10/07/24 by Jakob Vallejo CNP cetirizine (Zyrtec) 10 mg PO DAILY triamcinolone acetonide 0.1% 1 appl topical BID Tobacco use date assessed: 10/07/24 Dental Screening Dental Screen Date: 10/07/24 Did you have a dental visit in the last 12 months?: Yes Did you have a dental problem in the last 6 months where you did not have access to dental care?: No Was dental information given to patient?: Patient has dentist HPI HPI Comments History of Present Illness Details 48-year-old male presents with complaint s of constant pain to his left scapular, radiating to his left arm and left upper chest. He woke up with the pain 4 days ago and his symptoms have progressively worsened. He describes the pain as achiness that waxes and wanes. His symptoms have been refractory to ibuprofen and an old scrip of cyclobenzaprine which has no . He took 800 mg of ibuprofen twice yesterday and cyclobenzaprine once this morning. He denies fall, injury, or trauma. 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 1. Little interest or pleasure in doing things: not at all 2. Feeling down, depressed, or hopeless: not at all 3. Trouble falling or staying asleep, or sleeping too much: several days 4. Feeling tired or having little energy: more than half the days 5. Poor appetite or overeating: not at all 6. Feeling bad about yourself - or that you are a failure or have let yourself or your family down: not at all 7. Trouble concentrating on things, such as reading the newspaper or watching television: not at all 8. Moving or speaking so slowly that other people could have noticed. Or the opposite - being so fidgety or restless that you have been moving around a lot more than usual: not at all 9. Thoughts that you would be better off or of hurting yourself in some way: not at all Total score: 3 Depression Screening Interpretation: Negative Depression Screening Done: Yes Source: Developed by Drs. Armando Zamarripa, Chacha Alvarez, Grabiel Buckner and colleagues, with an educational carlos from [employer]. Thrive Questionnaire Date Thrive assessed: 05/23/24 I am a: Patient What is your living situation today?: I have a steady place to live Within the past 12 months, did the food you bought not last and you didn't have the money to get more?: I choose not to answer this question Within the past 12 months, did you worry whether your food would run out before you got money to buy more?: I choose not to answer this question Do you have trouble paying for medicines?: No Do you have trouble getting transportation to medical appointments?: No Do you have trouble paying your heating and electricity bill?: No Do you have trouble taking care of your child, family member or friend?: No Do you have trouble with day-to-day activities such as bathing, preparing meals, shopping, managing finances, etc.?: No Are you currently unemployed and looking for a job?: No Are you interested in more education?: No Please select the resources that you would like help with: None Currently or been in a relationship where the following occur: No concerns reported THRIVE Score: 0 AUDIT C Alcohol Use Questionnaire (AUDIT-C) 1. How often do you have a drink containing alcohol?: 2-4 times a month Total Score: 2 NAREN-7 AMB Questionnaire NAREN-7 Date NAREN - 7 assessed: 05/30/24 Feeling nervous, anxious, or on edge: 0 = Not at all Not being able to stop or control worryin = Not at all Worrying too much about different things: 0 = Not at all Trouble relaxin = More than half the days Being so restless that it is hard to sit still: 2 = More than half the days Becoming easily annoyed or irritable: 0 = Not at all Feeling afraid as if something awful might happen: 0 = Not at all Total NAREN-7 score (0-4 normal; 5-9 mild; 10-14 moderate; 15-21 severe): 4 Source: Developed by Drs. Armando Zamarripa, Chacha Alvarez, Grabiel Buckner and colleagues, with an educational carlos from [employer]. Review of Systems Const Details: Const Denies chills, Denies fatigue, Denies fever(s), Denies headache(s) and Denies weakness ENT Denies dizziness and Denies headache(s) Card Denies chest pain, Denies lightheadedness, Denies dyspnea and Denies other (Palpitations) Resp Denies cough, Denies dyspnea, Denies wheezing and Denies other ( shortness of breath) GI Denies abdominal pain, Denies melena, Denies hematochezia, Denies change in bowel habits, Denies dyspepsia and Denies nausea Denies hematuria and Denies dysuria Musc Reports as per HPI Skin/Breast Denies rash, Denies unusual bruising and Denies wounds Neuro Denies abnormal gait, Denies dizziness, Denies headache(s), Denies memory loss, Denies numbness, Denies Sensory deficit (Neuro), Denies tingling and Denies weakness Psych Denies anxiety, Denies depression, Denies memory loss Endo Denies cold intolerance, Denies fatigue, Denies heat intolerance, Denies polydipsia and Denies polyuria Aller/Immun Denies wheezing Physical exam (Primary Care) Tobacco/Smoking Status: Tobacco use Status Tobacco use date assessed 09/02/24 09/02/24 15:51 Patient Tobacco Use Status Current everyday Tobacco 09/02/24 15:51 Tobacco use type Cigarette 09/02/24 15:51 e-Cigarette/Vaping Use Never Used 09/02/24 15:51 Depression Screening Interpretation: Negative Thrive Assessment: Date of Thrive Assessment Date Thrive assessed 05/23/24 09/02/24 15:51 Currently or been in a relationship where the following occur: No concerns reported Const Other: General: no acute distress and well developed Nutritional Appearance: well nourished Orientation/consciousness: patient oriented x3 HENMT Head: Yes normocephalic and Yes atraumatic Eyes General: appearance normal, both eyes and all related structures Pupils: Equal, round and reactive pupils present EOM: EOMs intact bilaterally Resp Effort & Inspection: normal respiratory effort Auscultation: clear to auscultation bilaterally Cardio Rate: regular rate Rhythm: regular rhythm Heart sounds: S1 normal heart sound present, S2 normal heart sound present, no gallops, no murmurs and no rubs GI Palpation (GI): No Abdominal aortic bruit present, Soft to palpation, nontender, No hepatosplenomegaly present and No Rebound tenderness present Auscultation: normal bowel sounds General: Yes no CVA tenderness Back/Spine/Pelvis Back: no CVA tenderness Cervical Spine: cervical ROM normal and No Cervical spine tenderness Thoracic/Lumbar Spine: thoraco-lumbar ROM normal, No pain with thoraco-lumbar ROM, No thoracic spinal tenderness and No lumbar spinal tenderness. Tenderness to palpation of the trapezius muscle proximal to the left scapula, no erythema, edema, or overt injury or trauma, normal ROM of the left shoulder Extrem General: Yes normal to inspection, No edema and No calf tenderness Skin General: warm and dry. Normal skin color. Normal skin turgor Neuro General: patient oriented x3, gait normal and no focal neuro deficit Cranial nerves: Yes Equal, round and reactive pupils present Cognition (Neuro): normal cognition Gait exam (Neuro): Normal gait present Sensory Exam: No Sensory deficit (Neuro) Psych Appearance: grossly normal Affect: normal affect Attitude: cooperative Thought process: Normal thought process present Coding Level of Care Code Est Pt Level 3 (30528) Diagnoses Trapezius muscle strain S46.819A Assessment & Plan Assessment & Plan (1) Trapezius muscle strain: Code(s): S46.819A - Strain of other muscles, fascia and tendons at shoulder and upper arm level, unspecified arm, initial encounter Category: Medical Plan: Patient reports constant pain to his left scapular, radiating to his left arm and left upper chest. Tenderness to palpation of the trapezius muscle proximal to the left scapula, no erythema, edema, or overt injury or trauma, normal ROM of the left shoulder. Advised to take ibuprofen 600-800 mg with food every 6-8 hours as needed for pain and cyclobenzaprine 3 times a day as needed for pain. Warm/cool compresses encouraged. Work note given to return on . Follow-up with worsening or new symptoms. Verbalized understanding and agreed with treatment plan.
[2024-10-07 12:06] VITALS: BP 124/63; PULSE 86; RESP 16; TEMP 36.8; O2SAT 100; BMI 34.6
== END 2024-10-07 12:24 | disposition home or self-care (01) ==
LOC: HO.HMCFM 12:00
PROVIDERS: PCP Nurse Practitioner Family; Visit Provider Nurse Practitioner Family
DX: S46.819A Strain of other muscles, fascia and tendons at shoulder and upper arm level, unspecified arm, initial encounter (principal)

== ENCOUNTER 2024-11-28 06:01 | Outpatient (REF) | payer OTHER, SELFPAY ==
[2024-11-28 07:16] LABS: Cholesterol 184 mg/dL (<200); HDL Cholesterol 50 mg/dL (>40); LDL Cholesterol Calculated 116 mg/dL (<100); Triglycerides 91 mg/dL (<150)
== END 2024-11-28 06:02 | disposition home or self-care (01) ==
LOC: HO.LAB 06:01
PROVIDERS: PCP Nurse Practitioner Family; Visit Provider Nurse Practitioner Family
DX: E78.00 Pure hypercholesterolemia, unspecified (principal)
CPT/HCPCS: 36415; 80061

== ENCOUNTER 2024-12-08 14:39 | Outpatient (AMB) | payer OTHER, SELFPAY ==
--- NOTE | 2024-12-08 14:36 | A.OFFPC_ITS ---
Intake Visit Reasons: Telehealth 3 mos f/u hypercholesterolemia Intake Note: patient here for 3 months Telehealth follow up for Hypercholesterolemia Agricultural Education Professor Required: No Allergies No Known Allergies [No Known Allergies*] Allergy (Verified 12/08/24 14:36) Tobacco use date assessed: 12/08/24 Dental Screening Dental Screen Date: 12/08/24 Did you have a dental visit in the last 12 months?: Yes Did you have a dental problem in the last 6 months where you did not have access to dental care?: No Was dental information given to patient?: Patient has dentist HPI HPI Comments History of Present Illness Details 48-year-old male presents for telehealth visit for hypercholesterolemia follow-up. He admits to making healthy dietary choices and exercising routinely. He offers no complaints and denies acute symptoms at this time. 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 Current occupational exposures/hazards: No Cognitive needs: No Hearing needs: No Vision needs: Yes (Glasses) Questionnaire Thrive Questionnaire Date Thrive assessed: 10/07/24 I am a: Patient What is your living situation today?: I have a steady place to live Within the past 12 months, did the food you bought not last and you didn't have the money to get more?: I choose not to answer this question Within the past 12 months, did you worry whether your food would run out before you got money to buy more?: I choose not to answer this question Do you have trouble paying for medicines?: No Do you have trouble getting transportation to medical appointments?: No Do you have trouble paying your heating and electricity bill?: No Do you have trouble taking care of your child, family member or friend?: No Do you have trouble with day-to-day activities such as bathing, preparing meals, shopping, managing finances, etc.?: No Are you currently unemployed and looking for a job?: No Are you interested in more education?: No Please select the resources that you would like help with: None Currently or been in a relationship where the following occur: No concerns reported THRIVE Score: 0 NAREN-7 AMB Questionnaire NAREN-7 Date NAREN - 7 assessed: 05/30/24 Source: Developed by Drs. Armando Zamarripa, Chacha Alvarez, Grabiel Buckner and colleagues, with an educational carlos from [employer]. Review of Systems Const Details: Denies chills, Denies fatigue, Denies fever(s), Denies headache(s) and Denies weakness Cardiac Denies chest pain, Denies claudication, Denies leg edema, Denies lightheadedness, Denies palpitations, Denies dyspnea, Denies dyspnea on exertion, Denies orthopnea and Denies other (Loss of consciousness) Resp Denies cough, Denies excessive phlegm production, Denies dyspnea, Denies dyspnea on exertion, Denies snoring and Denies wheezing Physical exam (Primary Care) Tobacco/Smoking Status: Tobacco use Status Tobacco use date assessed 12/08/24 12/08/24 14:38 Patient Tobacco Use Status Current everyday Tobacco 12/08/24 14:38 Tobacco use type Cigarette 12/08/24 14:38 e-Cigarette/Vaping Use Never Used 12/08/24 14:38 Thrive Assessment: Date of Thrive Assessment Date Thrive assessed 10/07/24 12/08/24 14:38 Currently or been in a relationship where the following occur: No concerns reported Const Other: Patient is alert and oriented x3. Telehealth Telehealth Telehealth Platform: Telephone Location of provider rendering services: practice address Location of patient: address on file Patient Identification confirmed using: Name, : Yes Telehealth method: voice only Patient verbally consented to treatment: Yes Patient verbally consented to billing insurance company: Yes Patient informed of any privacy concerns related to visit: Yes Coding Level of Care Code Tele Est Pt Level 3 (19069) Diagnoses Hypercholesterolemia E78.00 Time Spent (min) 10 Assessment & Plan Assessment & Plan (1) Hypercholesterolemia: Code(s): E78.00 - Pure hypercholesterolemia, unspecified Category: Medical Plan: Recent lab results unremarkable except for slightly elevated LDL, 116, recent level was 116. Advised to limit foods high in saturated fat and avoid foods high in trans fat. Routine exercise encouraged. Will monitor lipid panel level periodically/annually or if presents with related symptoms or concerns. Follow-up for an extended physical exam or after 05/30/2025. Return sooner with symptoms or concerns. Verbalized understanding and agreed with treatment plan.
== END 2024-12-08 15:05 | disposition home or self-care (01) ==
LOC: HO.HMCFM 14:39
PROVIDERS: PCP Nurse Practitioner Family; Visit Provider Nurse Practitioner Family
DX: E78.00 Pure hypercholesterolemia, unspecified (principal)

== ENCOUNTER → 2024-12-08 14:39 | Outpatient (BNVA) | payer OTHER, SELFPAY | PROVIDERS: PCP Nurse Practitioner Family; Visit Provider Nurse Practitioner Family ==

== ENCOUNTER 2025-05-15 09:52 | Outpatient (AMB) | payer OTHER, SELFPAY ==
--- NOTE | 2025-05-15 09:54 | A.OFFPC_ITS ---
Vital Signs 05/15/25 10:02 Height 5 ft 6 in Weight 219 lb 8 oz BMI 35.4 BP 121/74 Blood Pressure Location Rt brachial Position Sitting Respiration 16 Pulse 79 Pulse Source Pulse Oximeter Temp 98.0 F Temp Source Oral Pulse Oximetry (%) 99 Oxygen Delivery Method Room Air Intake Visit Reasons: CPE Intake Note: patient here for CPE Scale Reclamation Tender Required: No Allergies No Known Allergies (No Known Allergies*) Allergy (Verified 05/15/25 10:21) Medication List - Last Reconciled 05/15/25 by Jakob Vallejo CNP cetirizine (Zyrtec) 10 mg PO DAILY triamcinolone acetonide 0.1% 1 appl topical BID Tobacco use date assessed: 05/15/25 Dental Screening Dental Screen Date: 05/15/25 Did you have a dental visit in the last 12 months?: No Did you have a dental problem in the last 6 months where you did not have access to dental care?: No Was dental information given to patient?: Patient has dentist HPI HPI Comments History of Present Illness Details 49-year-old male presents for an extende d physical exam. Denies anxiety or depression. States he feels down and lonely at times because his parents and sister are . He notes that his symptoms are normal/manageable. He declines psychotherapy. Notes that he has been unable to make a fist with the right the digits for the past 2 years. He reports intermittent pain to the finger. No acute symptoms at this time. Reports callus to the sole of both feet adjacent the toes. Callus will return after he shaves it off. He shaves it off recently. Acute issue(s) - None Past Medical History - Hypercholesterolemia, myopia, eczema, obesity, low back pain Social History - Smokes 6 cigarettes daily/2 packs week ly, started smoking 15 years and steadily increased. Does not vape. Drinks 3-6 beers 2-3 days monthly. Smokes 1 joint cannabis twice monthly - Has been making healthy dietary choice s. Walks routinely. Generally sleep well Health maintenance - Last eye exam was 5-8 years ago. Refer red to Ophthalmology for routine eye exam - Last dental visit was a year ago; rosalbao uraged to schedule an appointment with his dentist for routine dental care - Last Tdap was in 01/06/2023; declines th e vaccine today - Has not been vaccinated for the flu ; declines vaccination - He has not had a colonoscopy. [facility]erred [facility] Special[facility] - [facility] Surgical History No pertinent past surgical history Social History Housing: House Alcohol intake: current Alcohol intake frequency: a few times a week Patient Tobacco Use Status: Current everyday Tobacco user Tobacco use type: Cigarette Cigarette Packs Per Day: 0.5 Cigarettes Per Day: 5 e-Cigarette/Vaping Use: Never Used Second Hand Smoke Exposure: Yes service: No Current occupational status: employed Current occupation: [employer] Current occupational exposures/hazards: No Cognitive needs: No Hearing needs: No Vision needs: Yes (Glasses) Questionnaire PHQ-9 Over the last 2 weeks, how often have you been bothered by any of the following problems? 1. Little interest or pleasure in doing things: more than half the days 2. Feeling down, depressed, or hopeless: more than half the days 3. Trouble falling or staying asleep, or sleeping too much: not at all 4. Feeling tired or having little energy: more than half the days 5. Poor appetite or overeating: not at all 6. Feeling bad about yourself - or that you are a failure or have let yourself or your family down: not at all 7. Trouble concentrating on things, such as reading the newspaper or watching television: more than half the days 8. Moving or speaking so slowly that other people could have noticed. Or the opposite - being so fidgety or restless that you have been moving around a lot more than usual: not at all 9. Thoughts that you would be better off or of hurting yourself in some way: not at all Total score: 8 Depression Screening Interpretation: Positive Depression Screening Done: Yes 97351 - PHQ-9 Billing: Yes Source: Developed by Drs. Armando Zamarripa, Chacha Alvarez, Grabiel Buckner and colleagues, with an educational carlos from [employer]. Thrive Questionnaire Date Thrive assessed: 05/15/25 I am a: Patient What is your living situation today?: I have a steady place to live Within the past 12 months, did the food you bought not last and you didn't have the money to get more?: Never true Within the past 12 months, did you worry whether your food would run out before you got money to buy more?: Never true Do you have trouble paying for medicines?: No Do you have trouble getting transportation to medical appointments?: No Do you have trouble paying your heating and electricity bill?: No Do you have trouble taking care of your child, family member or friend?: No Do you have trouble with day-to-day activities such as bathing, preparing meals, shopping, managing finances, etc.?: No Are you currently unemployed and looking for a job?: No Are you interested in more education?: No Please select the resources that you would like help with: None Currently or been in a relationship where the following occur: No concerns reported THRIVE Score: 0 AUDIT C Alcohol Use Questionnaire (AUDIT-C) 1. How often do you have a drink containing alcohol?: 2-4 times a month 2. How many drinks containing alcohol do you have on a typical day when you are drinking?: 3 or 4 3. How often do you have six or more drinks on one occasion?: Less than monthly Total Score: 4 Score Reviewed/Action Taken: Yes NAREN-7 AMB Questionnaire NAREN-7 Date NAREN - 7 assessed: 05/15/25 Feeling nervous, anxious, or on edge: 0 = Not at all Not being able to stop or control worryin = Not at all Worrying too much about different things: 2 = More than half the days Trouble relaxin = More than half the days Being so restless that it is hard to sit still: 2 = More than half the days Becoming easily annoyed or irritable: 2 = More than half the days Feeling afraid as if something awful might happen: 0 = Not at all Total NAREN-7 score (0-4 normal; 5-9 mild; 10-14 moderate; 15-21 severe): 8 Source: Developed by Drs. Armando Zamarripa, Chacha Alvarez, Grabiel Buckner and colleagues, with an educational carlos from [employer]. NAREN-7 Assessment Billing NAREN-7 Assessment Tool: NAREN-7 Assessment 29780 Review of Systems Const Details: Denies chills, Denies fatigue, Denies fever(s), Denies headache(s) and Denies weakness HEENT Denies change in vision, Denies dizziness, Denies headache(s), Denies hearing loss, Denies nasal congestion, Denies sinus pain, Denies sinus pressure and Denies sore throat Card Denies chest pain, Denies lightheadedness, Denies dyspnea and Denies other (palpitations) Resp Denies cough, Denies dyspnea and Denies wheezing GI Denies abdominal pain, Denies melena, Denies hematochezia, Denies change in bowel habits, Denies dyspepsia and Denies nausea Denies hematuria and Denies dysuria Musc Denies abnormal gait, Denies myalgias, Denies arthralgias, Denies numbness and Denies tingling Skin/Breast Reports callus to sole both feet, Denies rash, Denies unusual bruising and Denies wounds Neuro Denies abnormal gait, Denies dizziness, Denies headache(s), Denies memory loss, Denies numbness, Denies Sensory deficit (Neuro), Denies tingling and Denies weakness Psych Denies anxiety, Denies depression and Denies memory loss Endo Denies cold intolerance, Denies fatigue, Denies heat intolerance, Denies zev ydipsia and Denies polyuria Jose Raul/Lymph Denies easy bleeding and Denies easy bruising Aller/Immun Denies wheezing Physical exam (Primary Care) Vital Signs: Last Vital Signs Temp 98.0 F 05/15/25 10:02 Pulse 79 05/15/25 10:02 Resp 16 05/15/25 10:02 BP 121/74 05/15/25 10:02 Pulse Ox 99 05/15/25 10:02 Oxygen Delivery Method Room Air 05/15/25 10:02 BMI result Body Mass Index 35.4 Tobacco/Smoking Status: Tobacco use Status Tobacco use date assessed 05/15/25 05/15/25 10:10 Patient Tobacco Use Status Current everyday Tobacco 05/15/25 09:55 Tobacco use type Cigarette 05/15/25 09:55 e-Cigarette/Vaping Use Never Used 05/15/25 09:55 PHQ-9: PHQ-9 Score PHQ-9: Total score 8 05/15/25 10:37 Depression Screening Interpretation: Positive Thrive Assessment: Date of Thrive Assessment Date Thrive assessed 05/15/25 05/15/25 10:10 Currently or been in a relationship where the following occur: No concerns reported Const Other: General: no acute distress, well developed, alert and awake Nutritional Appearance: well nourished Orientation/consciousness: patient oriented x3 [facility] Head: Yes normocephalic and Yes atraumatic Ears: hearing grossly normal bilaterally and TM's normal bilaterally General nose exam: Normal external nose present and Normal nares present Mouth: Normal oral and palatal mucosa present and moist mucous membranes Teeth and gingiva: dentition normal Throat: Yes oropharynx normal Eyes Pupils: Equal, round and reactive pupils present and Pupil accommodation reflex normal EOM: EOMs intact bilaterally Neck Neck: Yes normal visual inspection, Yes no lymphadenopathy and Yes trachea midline Thyroid: Thyroid normal Carotids: no bruits Lymphatic: no lymphadenopathy noted Chest Chest palpation & inspection: normal inspection of the chest Resp Effort & Inspection: normal respiratory effort Auscultation: clear to auscultation bilaterally Cardio Rate: regular rate Rhythm: regular rhythm Heart sounds: S1 normal heart sound present, S2 normal heart sound present, no gallops, no murmurs and no rubs Bruits: no abdominal aortic bruits and no carotid bruits GI Palpation (GI): No Abdominal aortic bruit present, Soft to palpation, nontender, No hepatosplenomegaly present and No Rebound tenderness present Auscultation: normal bowel sounds General: Yes no CVA tenderness Back/Spine/Pelvis Back: no CVA tenderness Cervical Spine: cervical ROM normal and No Cervical spine tenderness Thoracic/Lumbar Spine: thoraco-lumbar ROM normal, No pain with thoraco-lumbar ROM, No thoracic spinal tenderness and No lumbar spinal tenderness Skin General: warm and dry. Normal skin color. Normal skin turgor Lesions: no lesions Rashes: no rashes Trauma: no lacerations or abrasions Wounds: no wounds Nails: normal Neuro General: patient oriented x3, gait normal and CN's II-XI intact bilaterally Cranial nerves: Yes Equal, round and reactive pupils present Cognition (Neuro): normal cognition Gait exam (Neuro): Normal gait present Motor exam (neuro): 5/5 motor strength present throughout Sensory Exam: No Sensory deficit (Neuro) Deep tendon reflexes (DTR's): Right patellar reflex intensity grade: 2+ and Left patellar reflex intensity grade: 2+ Extrem General: Yes normal to inspection, No edema and No calf tenderness. Unable to make a fist with the right 3rd digits, no tenderness, erythema, edema or overt injury or trauma Psych Appearance: grossly normal Affect: normal affect Attitude: cooperative Thought process: Normal thought process present Coding Level of Care Code Est Pt Level 4 (15508) Est Pt Prev Care 40-64y(67724) Diagnoses Normal physical examination, routine Z00.00 Myopia H52.10 Eye exam, routine Z01.00 Trigger finger of right hand M65.30 Callus of foot L84 Colon cancer screening Z12.11 Smoking 1/2 pack a day or less F17.210 Obesity (BMI 30-39.9) E66.9 Additional Codes NAREN-7 Assessment Billing - NAREN-7 Assessment Tool: NAREN-7 Assessment 09297 ([id number]) PHQ-9 - 23926 - PHQ-9 Billing: Yes ([id number]) Assessment & Plan Assessment & Plan (1) Normal physical examination, routine: Code(s): Z00.00 - Encounter for general adult medical examination without abnormal findings Category: Medical Plan: No significant functional limitation. Healthy diet and routine exercise encouraged. Follow-up for transfer of care with a new provider in 2 months. Return sooner with symptoms or concerns. Verbalized understanding and agreed with the plan. (2) Myopia: Code(s): H52.10 - Myopia, unspecified eye Category: Medical Plan: Last eye exam was 5-8 years ago. Referred to Ophthalmology for routine eye exam. (3) Eye exam, routine: Code(s): Z01.00 - Encounter for examination of eyes and vision without abnormal findings Category: Medical Plan: Plan as above. (4) Trigger finger of right hand: Code(s): M65.30 - Trigger finger, unspecified finger Category: Medical Plan: Notes has been unable to make a fist with the right the digits for the past 2 years. He reports intermittent pain to the finger. No acute symptoms at this time. Unable to make a fist with the right 3rd digits, no tenderness, erythema, edema or overt injury or trauma. May take Tylenol ibuprofen as needed for pain. Referred [place] [facility] [place]. (5) Callus of foot: Code(s): L84 - Corns and callosities Category: Medical Plan: Unable to appreciate callus as patient recently shaved it off the sole of both feet. Referred to [facility]. (6) Colon cancer screening: Code(s): Z12.11 - Encounter for screening for malignant neoplasm of colon Category: Medical Plan: He has not had a colonoscopy. Referred to [facility]. (7) Smoking 1/2 pack a day or less: Code(s): F17.210 - Nicotine dependence, cigarettes, uncomplicated Category: Social Hx Plan: He smokes 6 cigarettes daily/2 packs weekly. He started smoking 15 years and steadily increased the amount. Instructed on the health risks and complications of cigarette smoking and cessation encouraged. Declines medication treatment for smoking cessation at this time and states he will cut down. Follow-up as needed. Verbalized understanding and agreed with the plan. (8) Obesity (BMI 30-39.9): Code(s): E66.9 - Obesity, unspecified Category: Medical Plan: He currently weighs 219 lb, BMI is 35.4. Healthy diet and weight management encouraged. Will referred to rn occupational/dietitian or weight management as needed. Verbalized understanding and agreed with the plan. Orders: Referrals Ophthalmology Referral Z01.00 - Encounter for examination of eyes and vision without abnormal findings Podiatry Referral L84 - Corns and callosities Gastroenterology Referral Z12.11 - Encounter for screening for malignant neoplasm of colon Orthopedics Referral M65.30 - Trigger finger, unspecified finger
[2025-05-15 10:02] VITALS: BP 121/74; PULSE 79; RESP 16; TEMP 36.7; O2SAT 99; BMI 35.4
== END 2025-05-15 10:46 | disposition home or self-care (01) ==
LOC: HO.HMCFM 09:53
PROVIDERS: PCP Nurse Practitioner Family; Visit Provider Nurse Practitioner Family
DX: Z00.00 Encounter for general adult medical examination without abnormal findings (principal); E66.9 Obesity, unspecified; Z68.35 Body mass index [BMI] 35.0-35.9, adult; M65.331 Trigger finger, right middle finger; L84 Corns and callosities; H52.10 Myopia, unspecified eye; F17.210 Nicotine dependence, cigarettes, uncomplicated; Z01.00 Encounter for examination of eyes and vision without abnormal findings; Z12.11 Encounter for screening for malignant neoplasm of colon

== ENCOUNTER → 2025-05-15 09:52 | Outpatient (BNVA) | payer OTHER, SELFPAY | PROVIDERS: PCP Nurse Practitioner Family; Visit Provider Nurse Practitioner Family | DX: Z00.00 Encounter for general adult medical examination without abnormal findings (principal); M79.644 Pain in right finger(s); L84 Corns and callosities; H52.10 Myopia, unspecified eye; M65.30 Trigger finger, unspecified finger; F17.210 Nicotine dependence, cigarettes, uncomplicated; E66.9 Obesity, unspecified; Z68.35 Body mass index [BMI] 35.0-35.9, adult | CPT/HCPCS: 96127 ==

== ENCOUNTER 2025-06-16 14:33 | Outpatient (AMB) | payer OTHER, SELFPAY ==
[2025-06-16 14:50] VITALS: BMI 35.4
--- NOTE | 2025-06-16 14:50 | A.OFFVIS_ITS ---
Vital Signs 06/16/25 14:50 Height 5 ft 6 in Weight 219 lb 8 oz BMI 35.4 Intake Visit Reasons: Corns and Callosities Intake Note: Hudson is a 49 year old male who presents today as a new patient for corns and callosities. Patient reports they have been going on for about 2 years. He has been trimming at home, with no other treatments. He states he has pain below the metatarsal area. Allergies No Known Allergies (No Known Allergies*) Allergy (Verified 06/16/25 15:02) HPI HPI Corns and Callosities: Details: 49-year-old male who presented for bilateral foot pain. He states it has been present for approximately 2 years. He has tried changing shoe wear which helps. He mostly has been treating his calluses at home himself. Denies any history of injuries or trauma to his feet. 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 [facility] Surgical History No pertinent past surgical history Social History Housing: House Alcohol intake: current Alcohol intake frequency: a few times a week Patient Tobacco Use Status: Current everyday Tobacco user Tobacco use type: Cigarette Cigarette Packs Per Day: 0.5 Cigarettes Per Day: 5 e-Cigarette/Vaping Use: Never Used Second Hand Smoke Exposure: Yes service: No Current occupational status: employed Current occupation: [employer] Current occupational exposures/hazards: No Cognitive needs: No Hearing needs: No Vision needs: Yes (Glasses) Review of Systems Const All systems reviewed & are unremarkable except as noted in HPI and below Physical Exam Vital Signs: BMI result Body Mass Index 35.4 Extrem Other: *Bilateral Lower Extremity Focused Exam Vascular: DP/PT 2/4, CFT less than 3 seconds all digits, temperature gradient warm to cool. No pedal edema. Derm: Hyperkeratotic lesions to the submet 2 through 4 region bilateral feet with IPK right sub 3rd metatarsal head region. No erythema or clinical signs of infection. Interdigital macerations. Neuro: Protective sensation grossly intact to bilateral lower extremities MSK: No pain on palpation of the plantar sulcus of the 2nd through 4th Metatarsal- phalangeal joints. Moderate-high arch bilateral feet. Ankle dorsiflexion 0 degrees on knee extension, 3-4 degrees on knee flexion. Office Procedures AMB Debridement /Avulsion Details: Procedure: Callus debridement Location: 1 lesion each foot, 2 total Anesthesia: N/A Description: The affected area was cleansed with an antiseptic solution. Using a sterile #15 blade, the hyperkeratotic tissue was radially debrided from the foot. All callused tissue was removed down to normal skin without causing bleeding or discomfort. The area was inspected for underlying ulceration or infection. Patient tolerated the procedure well. No complications noted. Tolerance: Patient tolerated procedure well, no immediate complications. [id number] of Callus (2-4) Procedure code (CPT) selection complete Assessment & Plan Assessment & Plan (1) Metatarsalgia of both feet: Code(s): M77.41 - Metatarsalgia, right foot; M77.42 - Metatarsalgia, left foot Category: Medical Plan: * Dispensed offloading metatarsal pads bilateral feet * Recommended purchasing offloading U pads * May referral for bilateral foot x-rays if symptoms persist (2) Callus of foot: Code(s): L84 - Corns and callosities Category: Medical Plan: * Debrided bilateral foot lesions * Rx urea cream (3) Tinea pedis: Code(s): B35.3 - Tinea pedis Category: Medical Qualifiers: Laterality: bilateral Qualified Code(s): B35.3 - Tinea pedis Plan: * Rx nystatin powder (4) Equinus contracture of ankle: Code(s): M24.573 - Contracture, unspecified ankle Category: Medical Plan: * Recommended range of motion and stretching exercises for bilateral Achilles tendons, which should decrease forefoot pressure. * Instructed to stretch prior to any and all high impact activities. Medications: New 2 urea 40% Apply to the bottom of feet 1 appl topical DAILY 28 grams 3RF callus L84 - Corns and callosities nystatin apply to left foot between all toes 1 appl topical DAILY 30 grams 3RF Coding Level of Care Code New Pt Level 4 (80623) Diagnoses Metatarsalgia of both feet M77.41; M77.42 Callus of foot L84 Tinea pedis of both feet B35.3 Laterality: bilateral Equinus contracture of ankle M24.573 Time Spent (min) 25
== END 2025-06-16 15:39 | disposition home or self-care (01) ==
PROVIDERS: PCP Nurse Practitioner Family; Visit Provider Student in an Organized Health Care Education/Training Program
DX: M77.41 Metatarsalgia, right foot (principal); M77.42 Metatarsalgia, left foot; L84 Corns and callosities; B35.3 Tinea pedis; M24.573 Contracture, unspecified ankle
CPT/HCPCS: 99204